=== PATIENT | female | born 1985 ===

== ENCOUNTER 2018-10-27 18:39 | Emergency (ER) | payer BC, MEDICAID ==
[2018-10-27 18:39] VITALS: BMI 30.2
[2018-10-27 19:04] VITALS: BP 118/77; PULSE 77; RESP 18; TEMP 98.2; O2SAT 99
--- NOTE | 2018-10-27 21:14 | C.PDOC ---
History Of Present Illness 33 year old female with left upper back pain for three weeks. Patient states she was seen by PCP who gave her a "pain shot", she was then seen at [facility] [place] two weeks ago where she had an x-ray done and given meloxicam which she states has not been helping. She describes the pain is to her left mid to upper back close to the scapula and goes into the left arm. Denies injury, SOB, fever, chills, chest pain, abdominal pain, or neck pain. Time Seen by Provider: 10/27/18 20:09 Chief Complaint (Nursing): Back Pain History Per: Patient History/Exam Limitations: no limitations Onset/Duration Of Symptoms: Days (3 weeks) Current Symptoms Are (Timing): Still Present Previous Symptoms: None Associated Symptoms: None Recent travel outside of the [place]: No Past Medical History Reviewed: Historical Data, Nursing Documentation, Vital Signs Vital Signs: Last Vital Signs Temp 98.2 F 10/27/18 18:59 Pulse 77 10/27/18 18:59 Resp 18 10/27/18 18:59 BP 118/77 10/27/18 18:59 Pulse Ox 99 10/27/18 18:59 Family History: States: Unknown Family Hx - Social History Hx Tobacco Use: No Hx Alcohol Use: No Hx Substance Use: No - Immunization History Hx Tetanus Toxoid Vaccination: No Hx Influenza Vaccination: No Hx Pneumococcal Vaccination: No Review Of Systems Constitutional: Negative for: Fever, Chills Eyes: Negative for: Pain, Redness ENT: Negative for: Mouth Swelling Cardiovascular: Negative for: Chest Pain, Palpitations Respiratory: Negative for: Cough, Shortness of Breath Gastrointestinal: Negative for: Nausea, Vomiting, Diarrhea Genitourinary: Negative for: Dysuria, Hematuria Musculoskeletal: Positive for: Back Pain Skin: Negative for: Rash Neurological: Negative for: Weakness, Numbness, Dizziness Physical Exam - Physical Exam Appears: Well, Non-toxic, No Acute Distress Skin: Normal Color, Warm, No Rash Head: Atraumatic, Normacephalic Eye(s): bilateral: Normal Inspection, PERRL, EOMI Oral Mucosa: Moist Neck: Normal ROM, No Midline Cervical Tenderness, No Paracervical Tenderness, Supple Chest: Symmetrical, No Tenderness Cardiovascular: Rhythm Regular Respiratory: Normal Breath Sounds, No Accessory Muscle Use, Other (Normal inspiratory effort) Gastrointestinal/Abdominal: Soft, No Tenderness Back: No Vertebral Tenderness, Paraspinal Tenderness (Left sided thoracic to palpation), Other (Ambulating with upright gait) Extremity: Normal ROM (x4) Neurological/Psych: Oriented x3, Normal Speech, Normal Cranial Nerves (Grossly intact) Gait: Steady ED Course And Treatment O2 Sat by Pulse Oximetry: 99 (Room air) Pulse Ox Interpretation: Normal Medical Decision Making Medical Decision Making: Ultram given. Patient was to receive CT LS spine but states it was taking too long so she will follow up outpatient instead, ortho referral given. Disposition Counseled Patient/Family Regarding: Diagnosis, Need For Followup, Rx Given - Disposition Referrals: Twin Boyd MD [Staff Provider] - Valentin Nuno III, MD [Staff Provider] - Disposition: HOME/ ROUTINE Disposition Time: 21:13 Condition: STABLE Prescriptions: traMADol [Ultram] 50 mg PO TID PRN #15 tab PRN Reason: Pain, Severe (8-10) Instructions: Upper Back Pain (DC) Forms: General Discharge Instructions, [facility] (Indonesian), Work Excuse - Clinical Impression Clinical Impression: Thoracic back pain - PA / DEAL ARCHITECT / Resident Statement MD/DO has reviewed & agrees with the documentation as recorded. - Scribe Statement The provider has reviewed the documentation as recorded by the Scribmila Orozco All medical record entries made by the Veronicaibmila were at my direction and personally dictated by me. I have reviewed the chart and agree that the record accurately reflects my personal performance of the history, physical exam, medical decision making, and the department course for this patient. I have also personally directed, reviewed, and agree with the discharge instructions and disposition.
== END 2018-10-27 21:20 | disposition home or self-care (01) ==
LOC: C.ER 18:39
DX: M54.6 Pain in thoracic spine (principal)